=== PATIENT | female | born 1985 | race Caucasian/White ===

== ENCOUNTER 2016-10-14 19:29 | Emergency (ER) | payer OTHER ==
[2016-10-14 21:36] VITALS: BP 118/67
--- NOTE | 2016-10-14 22:09 | UC ---
FLU HPI - HPI Summary HPI Summary: YOUNGEST SON HAS DIAGNOSIS OF INFLUENZA (WITH POSITIVE SWAB) YESTERDAY. TODAY SHE IS DEVELOPING COUGH CONGESTION, ACHES. - History of Current Complaint Chief Complaint: UCRespiratory Stated Complaint: COUGH Time Seen by Provider: 10/14/16 21:09 Hx Obtained From: Patient Hx Last Menstrual Period: 10/14/16 Onset/Duration: Sudden Onset, Lasting Hours, Still Present Severity Currently: Mild Severity Initially: Mild Associated Signs & Symptoms: Positive: Myalgia, Cough, Nasal Congestion - Allergy/Home Medications Allergies/Adverse Reactions: Allergies Allergy/AdvReac Type Severity Reaction Status Date / Time No Known Allergies Allergy Verified 10/14/16 21:36 PMH/Surg Hx/FS Hx/Imm Hx Previously Healthy: Yes Endocrine History Of: Denies: Diabetes, Thyroid Disease Cardiovascular History Of: Reports: Cardiac Disorders - mitral valve prolapse Denies: Hypertension Respiratory History Of: Denies: COPD, Asthma GI/ History Of: Denies: Ulcer - Surgical History Surgical History: Yes Surgery Procedure, Year, and Place: [id number] - Family History Known Family History: Positive: None Family History: none - Social History Occupation: Employed Full-time Lives: With Family Alcohol Use: Occasionally Substance Use Type: None Smoking Status (MU): Former Smoker Length of Time of Smoking/Using Tobacco: 3 Have You Smoked in the Last Year: No When Did the Patient Quit Smoking/Using Tobacco: 2003 - Immunization History Most Recent Influenza Vaccination: denies Most Recent Pneumonia Vaccination: denies Review of Systems Constitutional: Negative Skin: Negative Eyes: Negative ENT: Nasal Discharge Respiratory: Cough Cardiovascular: Negative Gastrointestinal: Negative Genitourinary: Negative Motor: Negative Neurovascular: Negative Musculoskeletal: Myalgia Neurological: Negative Psychological: Negative All Other Systems Reviewed And Are Negative: Yes Physical Exam Triage Information Reviewed: Yes Appearance: Well-Appearing, No Pain Distress, Well-Nourished Vital Signs: Initial Vital Signs Temp 97.8 F 10/14/16 21:30 Pulse 84 10/14/16 21:30 Resp 16 10/14/16 21:30 BP 118/67 10/14/16 21:30 Pulse Ox 100 10/14/16 21:30 Vital Signs Reviewed: Yes Eye Exam: Normal ENT Exam: Normal ENT: Positive: Normal ENT inspection, Hearing grossly normal, Pharynx normal, TMs normal Dental Exam: Normal Neck exam: Normal Neck: Positive: Supple, Nontender, No Lymphadenopathy. Negative: Nuchal Rigidity Respiratory Exam: Normal Respiratory: Positive: Chest non-tender, Lungs clear, Normal breath sounds, No respiratory distress Cardiovascular Exam: Normal Cardiovascular: Positive: RRR, No Murmur, Pulses Normal Abdominal Exam: Normal Abdomen Description: Positive: Nontender, No Organomegaly Musculoskeletal Exam: Normal Neurological Exam: Normal Psychological Exam: Normal Psychological: Positive: Normal Response To Family Skin Exam: Normal Flu Course/Dx - Differential Dx/Diagnosis Differential Diagnosis/HQI/PQRI: Influenza, RSV, Upper Respiratory Infection Provider Diagnoses: INFLUENZA Discharge - Discharge Plan Condition: Stable Disposition: HOME Prescriptions: Oseltamivir CAP* [Tamiflu CAP*] 75 mg PO BID #10 cap Patient Education Materials: Influenza (ED) Referrals: Yin Rowley [Primary Care Provider] -
== END 2016-10-14 22:10 | disposition home or self-care (01) ==
LOC: UCEAST 19:29
DX: J11.1 Influenza due to unidentified influenza virus with other respiratory manifestations (principal); Z87.891 Personal history of nicotine dependence
CPT/HCPCS: 99212; G0463

== ENCOUNTER 2016-10-21 12:59 | Emergency (ER) | payer OTHER ==
[2016-10-21 15:24] VITALS: BP 142/82
--- NOTE | 2016-10-21 15:38 | UC ---
Respiratory Complaint HPI - HPI Summary HPI Summary: 31 yo female ill for about a week Initially dxed with flu now worse cough worse severe sinus pressure and pain low grade temp - History of Current Complaint Chief Complaint: UCRespiratory Stated Complaint: COUGH Time Seen by Provider: 10/21/16 15:33 Hx Obtained From: Patient Hx Last Menstrual Period: 09/28/16 Onset/Duration: Gradual Onset, Lasting Days Timing: Constant Severity Initially: Mild Severity Currently: Moderate Pain Intensity: 4 Pain Scale Used: 0-10 Numeric Character: Cough: Productive Aggravating Factors: Deep Breaths, Recumbent Position Alleviating Factors: Nothing Associated Signs And Symptoms: Positive: Fever, Chills, Nasal Congestion, Hoarseness, Sinus Discomfort - Allergies/Home Medications Allergies/Adverse Reactions: Allergies Allergy/AdvReac Type Severity Reaction Status Date / Time No Known Allergies Allergy Verified 10/21/16 15:17 Home Medications: Home Medications Ibuprofen TAB* [Advil TAB*] 200 mg PO Q6H PRN 10/21/16 [History Confirmed ] PMH/Surg Hx/FS Hx/Imm Hx Previously Healthy: Yes Endocrine History Of: Denies: Diabetes, Thyroid Disease Cardiovascular History Of: Reports: Cardiac Disorders - mitral valve prolapse Denies: Hypertension Respiratory History Of: Denies: COPD, Asthma GI/ History Of: Denies: Ulcer - Surgical History Surgical History: Yes Surgery Procedure, Year, and Place: [id number] - Family History Known Family History: Positive: Hypertension Negative: Cardiac Disease, Diabetes Family History: none - Social History Alcohol Use: Occasionally Substance Use Type: None Smoking Status (MU): Former Smoker Length of Time of Smoking/Using Tobacco: 3 Have You Smoked in the Last Year: No When Did the Patient Quit Smoking/Using Tobacco: 2003 - Immunization History Most Recent Influenza Vaccination: denies Most Recent Pneumonia Vaccination: denies Review of Systems Constitutional: Fever, Chills Skin: Negative Eyes: Negative ENT: Dental Pain, Nasal Discharge Respiratory: Cough Cardiovascular: Negative Gastrointestinal: Negative Genitourinary: Negative Motor: Negative Neurovascular: Negative Musculoskeletal: Negative Neurological: Headache - facial headache and pain Psychological: Negative All Other Systems Reviewed And Are Negative: Yes Physical Exam Triage Information Reviewed: Yes Appearance: Well-Appearing, No Pain Distress, Well-Nourished Vital Signs: Initial Vital Signs Temp 97.9 F 10/21/16 15:18 Pulse 72 10/21/16 15:18 Resp 16 10/21/16 15:18 BP 142/82 10/21/16 15:18 Pulse Ox 99 10/21/16 15:18 Vital Signs Reviewed: Yes Eyes: Positive: Conjunctiva Clear ENT: Positive: Hearing grossly normal, Nasal congestion, Nasal drainage, TMs normal, Muffled/hoarse voice Neck: Positive: Supple, Nontender Respiratory: Positive: Lungs clear, Normal breath sounds, No respiratory distress, No accessory muscle use Cardiovascular: Positive: RRR, No Murmur Musculoskeletal: Positive: ROM Intact, No Edema Neurological: Positive: Alert Psychological Exam: Normal Skin Exam: Normal UC Diagnostic Evaluation - Laboratory O2 Sat by Pulse Oximetry: 99 - normal/not hypoxic Respiratory Course/Dx - Differential Dx/Diagnosis Provider Diagnoses: acute sinusitis Discharge - Discharge Plan Condition: Stable Disposition: HOME Prescriptions: Cefuroxime Axetil [Ceftin 250 MG] 250 mg PO BID #20 tab Fluconazole 150 MG (NF) [Diflucan 150 mg (NF)] 150 mg PO ONCE #1 tab Patient Education Materials: Sinusitis (ED) Referrals: Ras Whitehead NP [Primary Care Provider] - 5 Days (if not better) Additional Instructions: saline nasal spray twice daily warm facial compresses
== END 2016-10-21 15:50 | disposition home or self-care (01) ==
LOC: UCCORT 12:59
DX: J01.90 Acute sinusitis, unspecified (principal); I34.1 Nonrheumatic mitral (valve) prolapse; Z87.891 Personal history of nicotine dependence
CPT/HCPCS: 99212; G0463

== ENCOUNTER 2017-05-23 08:06 | Emergency (ER) | payer OTHER ==
[2017-05-23] MEDS ORDERED: Ondansetron INJ* 2 MG/ML VIAL IV ONE (08:30)
[2017-05-23] MEDS ORDERED: Pantoprazole IV* 40 MG IV ONE (08:30)
[2017-05-23] MEDS ORDERED: Al Hydrox/Mg Hydrox/Simet LIQ* 30 ML UDC PO ONE (08:33)
[2017-05-23] MEDS ORDERED: Lidocaine 2% VISCOUS* 15 ML UDC PO ONE (08:33)
--- NOTE | 2017-05-23 09:07 | RAD ---
Indication: Abdominal pain. Flat and upright views of the abdomen demonstrates no free air. Air distended colon is noted. IMPRESSION: No free air or intestinal obstruction is noted.
--- NOTE | 2017-05-23 09:08 | RAD ---
Indication: Chest pain. Single frontal view of the chest performed at 0852 hours was reviewed. No prior study is available for comparison. No mediastinal shift is noted. Heart is of normal size and configuration. Lung callejas appear clear. IMPRESSION: NO ACTIVE CARDIOPULMONARY DISEASE IS NOTED.
[2017-05-23 09:15] LABS: Hematocrit 40 % (35-47); Hemoglobin 13.6 g/dl (12.0-16.0); Mean Corpuscular HGB Conc 34 g/dl (31-36); Mean Corpuscular Hemoglobin 28 pg (27-31); Mean Corpuscular Volume 84 fL (80-97); Mean Platelet Volume 10 um3 (7.4-10.4); Red Cell Distribution Width 14 % (10.5-15); White Blood Count 13.3 10^3/ul (3.5-10.8)
[2017-05-23 09:26] LABS: Urine Bacteria 1+ (Absent); Urine Bilirubin Negative (Negative); Urine Glucose Negative (Negative); Urine Nitrite Negative (Negative)
[2017-05-23 09:38] LABS: ALT 18 U/L (7-52); AST 15 U/L (13-39); Albumin 4.3 g/dL (3.2-5.2); Alkaline Phosphatase 65 U/L (34-104); Anion Gap 8 mmol/L (2-11); BUN/Creatinine Ratio 14.7 (8-20); Blood Urea Nitrogen 10 mg/dL (6-24); C Reactive Protein 8.09 mg/L (< 5.00); CO2 Carbon Dioxide 23 mmol/L (22-32); Calcium 8.9 mg/dL (8.6-10.3); Chloride 105 mmol/L (101-111); EGFR African American 127.4 (>60); Globulin 2.9 g/dL (2-4); Glucose 114 mg/dL (70-100); Lipase 10 U/L (11.0-82.0); Magnesium 1.9 mg/dL (1.9-2.7); Potassium 3.7 mmol/L (3.5-5.0); Sodium 136 mmol/L (133-145); Total Protein 7.2 g/dL (6.4-8.9)
[2017-05-23] MEDS ORDERED: NS 0.9% 1000 ML* 1,000 ML IV ONE (09:59)
[2017-05-23 11:37] VITALS: BP 122/67
--- NOTE | 2017-05-23 18:55 | ED ---
Jeff Easton Thomas, scribed for Victor Hugo Levy MD on 05/23/17 at 0834 . Abdominal Pain/Female - HPI Summary HPI Summary: The pt is a 32 y/o F presenting to the ED c/o epigastric abd pain that was present when she woke up this AM. The pain is described as burning. The pain radiates to her throat and her back between her shoulder blades. The pain is rated 5/10. The pain is aggravated by nothing and is alleviated by vomiting. The patient has treated the pain with Famotidine and Tums [employer]. Pt additionally c /o nausea, vomiting, and a sour taste in her mouth. PSHx includes cholecystectomy. She is accompanied by a female family member. - History of Current Complaint Chief Complaint: EDChestPainROMI Stated Complaint: CHEST PAIN/DIZZY/NAUSEA Time Seen by Provider: 05/23/17 08:22 Hx Obtained From: Patient, Family/Journal Entry Audit Clerk - female family member is present Hx Last Menstrual Period: 09/28/16 Onset/Duration: Lasting Hours - pain was present when she woke up, Still Present Timing: Constant Pain Intensity: 5 Pain Scale Used: 0-10 Numeric Location: Epigastric Character: Burning Aggravating Factor(s): Nothing Alleviating Factor(s): Vomiting Associated Signs and Symptoms: Positive: Nausea, Vomiting, Other: - Sour taste in mouth. Allergies/Adverse Reactions: Allergies Allergy/AdvReac Type Severity Reaction Status Date / Time No Known Allergies Allergy Verified 05/23/17 08:18 PMH/Surg Hx/FS Hx/Imm Hx Previously Healthy: No Endocrine/Hematology History: Denies: Hx Diabetes, Hx Thyroid Disease Cardiovascular History: Denies: Hx Hypertension Respiratory History: Denies: Hx Asthma, Hx Chronic Obstructive Pulmonary Disease (COPD) GI History: Reports: Other GI Disorders - Hx gallbladder disease (with cholecystectomy) Denies: Hx Ulcer - Surgical History Surgery Procedure, Year, and Place: [id number] Infectious Disease History: No Infectious Disease History: Denies: Hx Clostridium Difficile, Hx Hepatitis, Hx Human Immunodeficiency Virus (HIV), Hx of Known/Suspected MRSA, Hx Shingles, Hx Tuberculosis, Hx Known/ Suspected VRE, Hx Known/Suspected VRSA, History Other Infectious Disease, Traveled Outside the [place] in Last 30 Days - Family History Known Family History: Positive: Hypertension Negative: Cardiac Disease, Diabetes Family History: none - Social History Alcohol Use: Occasionally Hx Substance Use: No Substance Use Type: Reports: None Hx Tobacco Use: Yes Smoking Status (MU): Former Smoker Length of Time of Smoking/Using Tobacco: 3 Have You Smoked in the Last Year: No Review of Systems Negative: Fever Positive: Abdominal Pain - epigastric, Vomiting, Nausea, Other - Sour taste in mouth All Other Systems Reviewed And Are Negative: Yes Physical Exam - Summary Physical Exam Summary: VITAL SIGNS: Reviewed. GENERAL: Patient is a well-developed and nourished female who is lying comfortable in the stretcher. Patient is not in any acute respiratory distress. HEAD AND FACE: No signs of trauma. No ecchymosis, hematomas or skull depressions. No sinus tenderness. EYES: PERRLA, EOMI x 2, No injected conjunctiva, no nystagmus. EARS: Hearing grossly intact. Ear canals and tympanic membranes are within normal limits. MOUTH: Oropharynx within normal limits. NECK: Supple, trachea is midline, no adenopathy, no JVD, no carotid bruit, no c- spine tenderness, neck with full ROM. CHEST: Symmetric, no tenderness at palpation LUNGS: Clear to auscultation bilaterally. No wheezing or crackles. CVS: Regular rate and rhythm, S1 and S2 present, no murmurs or gallops appreciated. ABDOMEN: She has some epigastric tenderness. Soft. No signs of distention. No rebound no guarding, and no masses palpated. Bowel sounds are normal. EXTREMITIES: FROM in all major joints, no edema, no cyanosis or clubbing. NEURO: Alert and oriented x 3. No acute neurological deficits. Speech is normal and follows commands. SKIN: Dry and warm Triage Information Reviewed: Yes Vital Signs On Initial Exam: Initial Vitals Temp Pulse Resp BP Pulse Ox 97.4 F 111 17 138/71 100 05/23/17 08:08 05/23/17 08:08 05/23/17 08:08 05/23/17 08:08 05/23/17 08:08 Vital Signs Reviewed: Yes - [place] Coma Scale Coma Scale Total: 15 Diagnostics - Vital Signs Vital Signs Temp Pulse Resp BP Pulse Ox 05/23/17 08:25 25 05/23/17 08:24 138/83 05/23/17 08:08 97.4 F 111 17 138/71 100 - Laboratory Result Diagrams: 05/23/17 09:00 05/23/17 09:00 Lab Statement: Any lab studies that have been ordered have been reviewed, and results considered in the medical decision making process. - Radiology CXR Xray Interpretation: No Acute Changes - No active cardiopulmonary disease is noted. ED physician has reviewed this report and agrees. Radiology Interpretation Completed By: Radiologist XR Abdo Xray Interpretation: No Acute Changes - No free air or intestinal obstruction is noted. ED physician has reviewed this report and agrees. Radiology Interpretation Completed By: Radiologist - EKG 09:11 Cardiac Rate: Tachycardia - 105 BPM EKG Rhythm: Sinus Tachycardia EKG Interpretation: TWI in II, AVF, V2-V5. Abdominal Pain Fem Course/Dx - Course Course Of Treatment: The pt is a 32 y/o F presenting to the ED c/o epigastric abd pain that was present when she woke up this AM. The pain is described as burning. The pain radiates to her throat and her back between her shoulder blades. The pain is rated 5/10. The pain is aggravated by nothing and is alleviated by vomiting. The patient has treated the pain with Famotidine and Tums [employer]. Pt additionally c/o nausea, vomiting, and a sour taste in her mouth. PSHx includes cholecystectomy. She is accompanied by a female family member. Test results are without significant abnormalities except WBC 13. In the ED course, the patient was given IV fluids, Protonix, and GI cocktail. The symptoms are resolved. At this point, the patient is asymptomatic and is feeling better. Therefore, she will be discharged home with follow up by primary care. The patient is hemodynamically stable and alert and oriented x 3. - Diagnoses Provider Diagnoses: GERD (gastroesophageal reflux disease), Epigastric pain, Gastritis Discharge - Discharge Plan Condition: Stable Disposition: HOME Prescriptions: Pantoprazole TAB (NF) [Protonix TAB (NF)] 20 mg PO DAILY #14 tab Patient Education Materials: Epigastric Pain (ED), Gastroesophageal Reflux Disease (ED), Gastritis (ED) Referrals: Ras Whitehead NP [Primary Care Provider] - 3 Days Additional Instructions: Follow up with your primary care provider in 2-3 days. Return to the emergency department for any new or worsening symptoms. The documentation as recorded by the Jeff maier Thomas accurately reflects the service I personally performed and the decisions made by me, Victor Hugo Levy MD.
== END 2017-05-23 11:48 | disposition home or self-care (01) ==
LOC: ED 08:06
DX: K21.9 Gastro-esophageal reflux disease without esophagitis (principal); R10.13 Epigastric pain; K29.70 Gastritis, unspecified, without bleeding; R11.2 Nausea with vomiting, unspecified
CPT/HCPCS: 36415; 71010; 74020; 80053; 81003; 81015; 83690; 83735; 83880; 84484; 84702; 85025; 86140; 87086; 93005; 96365; 96366; 99283; A9270-GY; J2405

== ENCOUNTER 2017-10-09 13:50 | Emergency (ER) | payer OTHER ==
[2017-10-09 14:41] VITALS: BP 137/72
--- NOTE | 2017-10-09 14:47 | UC ---
Throat Pain/Nasal Son HPI - HPI Summary HPI Summary: 32 y/o female presents to the urgent care c/o sore throat, nasal congestion w/ dry cough for the past 3 days. However her 2 children were Dx w/ strep yesterday by [employer] Set Up Operator. This morning she developed fever of 101F w/ sinus pain and pressure. She took Ibuprofen 600mg PO to alleviate symptoms around 1300pm. Pt denies SOB, chest pain, abdominal pain, N/V/D. - History of Current Complaint Chief Complaint: UCRespiratory Stated Complaint: FEVER/ST Time Seen by Provider: 10/09/17 14:45 Hx Obtained From: Patient Hx Last Menstrual Period: 3 weeks ago ?: No Onset/Duration: Gradual Onset, Lasting Days - 3 days, Still Present, Worse Since - this morning Severity: Mild Pain Intensity: 4 Pain Scale Used: 0-10 Numeric Cough: Nonproductive Associated Signs & Symptoms: Positive: Dysphagia, Sinus Discomfort, Nasal Discharge, Fever - Epiglottits Risk Factors Epiglottis Risk Factors: Negative - Allergies/Home Medications Allergies/Adverse Reactions: Allergies Allergy/AdvReac Type Severity Reaction Status Date / Time No Known Allergies Allergy Verified 10/09/17 14:35 Home Medications: Home Medications Topiramate TAB(*) [Topamax 25 MG tab] 50 mg DAILY 10/09/17 [History Confirmed ] PMH/Surg Hx/FS Hx/Imm Hx Previously Healthy: Yes - Pt denies PMHX - Surgical History Surgical History: Yes Surgery Procedure, Year, and Place: [id number]. Gallbladder - Family History Known Family History: Positive: Hypertension Negative: Cardiac Disease, Diabetes Family History: Dyslipidemia - Social History Occupation: Employed Full-time Lives: With Family Alcohol Use: None Substance Use Type: None Smoking Status (MU): Former Smoker Length of Time of Smoking/Using Tobacco: 3 Have You Smoked in the Last Year: No When Did the Patient Quit Smoking/Using Tobacco: 2003 - Immunization History Most Recent Influenza Vaccination: denies Most Recent Pneumonia Vaccination: denies Review of Systems Constitutional: Fever, Chills Skin: Negative Eyes: Negative ENT: Sore Throat, Nasal Discharge Respiratory: Cough - dry Cardiovascular: Negative Gastrointestinal: Negative Genitourinary: Negative Motor: Negative Neurovascular: Negative Musculoskeletal: Negative Neurological: Negative Psychological: Negative Is Patient Immunocompromised?: No All Other Systems Reviewed And Are Negative: Yes Physical Exam - Summary Physical Exam Summary: VITAL SIGNS: Reviewed. GENERAL: Patient is a well developed and nourished female who is sitting comfortable in the examining table. Patient is not in any acute respiratory distress. HEAD AND FACE: No signs of trauma. No ecchymosis, hematomas or skull depressions. No sinus tenderness. EYES: PERRLA, EOMI x 2, No injected conjunctiva, no nystagmus. No photophobia. EARS: Hearing grossly intact. Ear canals and tympanic membranes are within normal limits. MOUTH: Positive pharynx with mild erythema, no exudates, mild palatal petechiae. mild B/L tonsillar enlargement with no exudate. Uvula in midline. NECK: Supple, trachea is midline, Positive anterior cervical lymphadenopathy, no JVD, no carotid bruit, no c-spine tenderness, neck with full ROM. No meningeal signs, no Kernig's or brudzinskis signs. CHEST: Symmetric, no tenderness at palpation LUNGS: Clear to auscultation bilaterally. No wheezing or crackles. CVS: Regular rate and rhythm, S1 and S2 present, no murmurs or gallops appreciated. ABDOMEN: Soft, non-tender. No signs of distention. No rebound no guarding, and no masses palpated. Bowel sounds are normal. EXTREMITIES: FROM in all major joints, no edema, no cyanosis or clubbing. NEURO: Alert and oriented x 3. No acute neurological deficits. Speech is normal and follows commands. SKIN: Dry and warm Triage Information Reviewed: Yes Vital Signs: Initial Vital Signs Temp 97.7 F 10/09/17 14:34 Pulse 88 10/09/17 14:34 Resp 14 10/09/17 14:34 BP 137/72 10/09/17 14:34 Pulse Ox 99 10/09/17 14:34 Throat Pain/Nasal Course/Dx - Course Course Of Treatment: 32 y/o female presents to the urgent care c/o sore throat, nasal congestion w/ dry cough for the past 3 days. However her 2 children were Dx w/ strep yesterday by [employer] Set Up Operator. This morning she developed fever of 101F w/ sinus pain and pressure. She took Ibuprofen 600mg PO to alleviate symptoms around 1300pm. Pt denies SOB, chest pain, abdominal pain, N/V/D.Hx obtained. Pt w/ pharyngitis on examination. Rapid strep ordered, result: negative. Viral pharyngitis.Pt advised to continue w/ ibuprofen PO to alleviates symptoms of pain and swelling. Advised on hand washing to avoid spreading. Pt advised to rest, eat well and avoid strenuous exercise. If symptoms do not improve or worsen advised to return to the urgent care or f/u with her PCP for further evaluation and treatment. Pt understood and agreed - Differential Dx/Diagnosis Differential Diagnosis/HQI/PQRI: Influenza, Laryngitis, Mononucleosis, Pharyngitis, Sinusitis, Tonsillitis, URI Provider Diagnoses: 1- Acute pharyngitis Discharge - Discharge Plan Condition: Stable Disposition: HOME Patient Education Materials: Pharyngitis (ED) Referrals: Ras Whitehead NP [Primary Care Provider] - If Needed Additional Instructions: 1-Please continue taking ibuprofen PO q6-8hrs prn as instructed after meals to alleviate pain and swelling. Increase fluid intake, eat well, rest and avoid strenuous exercise 2-If symptoms do not improve or worsen please return to the urgent care or f/u with your PCP for further evaluation and treatment.
== END 2017-10-09 15:13 | disposition home or self-care (01) ==
LOC: UCCORT 13:50
DX: J02.9 Acute pharyngitis, unspecified (principal); Z87.891 Personal history of nicotine dependence
CPT/HCPCS: 87651; 99211; G0463

== ENCOUNTER 2018-01-25 16:22 | Emergency (ER) | payer OTHER ==
--- NOTE | 2018-01-25 16:53 | UC ---
Complaint Female HPI - HPI Summary HPI Summary: uti since last pm. took azo. - History Of Current Complaint Stated Complaint: URINARY Time Seen by Provider: 01/25/18 16:45 Hx Obtained From: Patient Hx Last Menstrual Period: 3 weeks ago ?: No Onset/Duration: Gradual Onset Timing: Constant Aggravating Factor(s): Nothing Alleviating Factor(s): Nothing Associated Signs And Symptoms: Negative: Fever, Back Pain, Vaginal Bleeding/ Discharge - Allergies/Home Medications Allergies/Adverse Reactions: Allergies Allergy/AdvReac Type Severity Reaction Status Date / Time No Known Allergies Allergy Verified 01/25/18 16:58 PMH/Surg Hx/FS Hx/Imm Hx - Additional Past Medical History Additional PMH: uti - Surgical History Surgical History: Yes Surgery Procedure, Year, and Place: [id number]. Gallbladder - Family History Known Family History: Positive: None, Hypertension Negative: Cardiac Disease, Diabetes Family History: Dyslipidemia - Social History Occupation: Employed Full-time Alcohol Use: None Substance Use Type: None Smoking Status (MU): Former Smoker Length of Time of Smoking/Using Tobacco: 3 Have You Smoked in the Last Year: No When Did the Patient Quit Smoking/Using Tobacco: 2003 - Immunization History Most Recent Influenza Vaccination: denies Most Recent Pneumonia Vaccination: denies Vaccination Up to Date: Yes Review of Systems Constitutional: Negative Skin: Negative Eyes: Negative ENT: Negative Respiratory: Negative Cardiovascular: Negative Gastrointestinal: Negative Genitourinary: Dysuria, Frequency, Urgency Motor: Negative Neurovascular: Negative Musculoskeletal: Negative Neurological: Negative Psychological: Negative Is Patient Immunocompromised?: No All Other Systems Reviewed And Are Negative: Yes Physical Exam Triage Information Reviewed: Yes Appearance: Well-Appearing Eyes: Positive: Conjunctiva Clear ENT: Positive: Normal ENT inspection Neck: Positive: Supple, Nontender, No Lymphadenopathy Respiratory: Positive: Lungs clear, Normal breath sounds Cardiovascular: Positive: RRR, No Murmur Abdomen Description: Positive: Nontender, No Organomegaly, Soft. Negative: CVA Tenderness (R), CVA Tenderness (L), Distended, Guarding Bowel Sounds: Positive: Present Musculoskeletal: Positive: ROM Intact Neurological: Positive: Alert Psychological: Positive: Age Appropriate Behavior Skin Exam: Normal Diagnostics - Laboratory Diagnostic Studies Completed/Ordered: urine culture pending. pt took azo door captain thus no u/a. Complaint Female Dx - Course Course Of Treatment: hx suggests uti, will tx presumptively - Differential Dx/Diagnosis Provider Diagnoses: dysuria Discharge - Sign-Out/Discharge Documenting (check all that apply): Discharge/Admit/Transfer - Discharge Plan Condition: Stable Disposition: HOME Prescriptions: Nitrofurantoin Monohyd/M-Cryst [Macrobid 100 mg Capsule] 100 mg PO BID #10 cap Patient Education Materials: Urinary Tract Infection in Women (DC) Referrals: Ras Whitehead NP [Primary Care Provider] - 7 Days - Billing Disposition and Condition Condition: STABLE Disposition: Home
[2018-01-25 16:57] VITALS: BP 121/57
== END 2018-01-25 17:10 | disposition home or self-care (01) ==
LOC: UCCORT 16:22
DX: R30.0 Dysuria (principal); Z87.891 Personal history of nicotine dependence
CPT/HCPCS: 87086; 99212; G0463

== ENCOUNTER 2019-10-13 14:36 | Emergency (ER) | payer OTHER ==
[2019-10-13 16:14] VITALS: BP 121/58
--- NOTE | 2019-10-13 16:36 | UC ---
Respiratory Complaint HPI - HPI Summary HPI Summary: Per refinery technician: "Cough, headache, fever today-101.9. Symptoms started today. Pt finished a cruise over 2 weeks ago. " -h/o gastric byopass. had called her dr to find out what she can take for fever. -took APAP ~ 3 hrs ago and has recued fever from 101. -here w/ her who has had sx started 10/10. -her tested positive for flu A today. She has been taking care of him. her sx started today in [facility] exact same fashion that his did. + ASHLEY and fever and now starting / cough -denies shortness of breath or difficulty breathing. [facility]. these sx started 2 d ago. - History of Current Complaint Chief Complaint: UCGeneralIllness Stated Complaint: FEVER,COUGH Time Seen by Provider: 10/13/19 16:31 Hx Last Menstrual Period: 09/29/19 Pain Intensity: 5 - Allergies/Home Medications Allergies/Adverse Reactions: Allergies Allergy/AdvReac Type Severity Reaction Status Date / Time No Known Allergies Allergy Verified 10/13/19 16:15 Home Medications: Home Medications Acetaminophen [Mapap] 1,000 mg PO Q4HR PRN 10/13/19 [History Confirmed 10/13/19] Oseltamivir CAP* [Tamiflu CAP*] 75 mg PO BID #10 cap 10/13/19 [Rx] Topiramate [Topamax] 25 mg PO DAILY 10/13/19 [History Confirmed 10/13/19] PMH/Surg Hx/FS Hx/Imm Hx Previously Healthy: Yes - Surgical History Surgical History: Yes Surgery Procedure, Year, and Place: [id number]. Gallbladder. gastric bypass - Family History Known Family History: Positive: None, Hypertension, Respiratory Disease - child w/ asthma Negative: Cardiac Disease, Diabetes Family History: Dyslipidemia - Social History Alcohol Use: None Substance Use Type: None Smoking Status (MU): Former Smoker Length of Time of Smoking/Using Tobacco: 3 Have You Smoked in the Last Year: No When Did the Patient Quit Smoking/Using Tobacco: 2003 - Immunization History Most Recent Influenza Vaccination: denies Most Recent Pneumonia Vaccination: denies Vaccination Up to Date: Yes Review of Systems All Other Systems Reviewed And Are Negative: Yes Constitutional: Positive: Fever Skin: Positive: Negative. Negative: Rash Eyes: Positive: Negative Respiratory: Positive: Cough. Negative: Shortness Of Breath Cardiovascular: Positive: Negative. Negative: Palpitations, Chest Pain Gastrointestinal: Positive: Negative. Negative: Abdominal Pain, Vomiting, Diarrhea, Nausea Genitourinary: Positive: Negative Motor: Positive: Negative Neurovascular: Positive: Negative Musculoskeletal: Positive: Negative Neurological/Mental Status: Positive: Headache Psychological: Positive: Negative Physical Exam Triage Information Reviewed: Yes Appearance: Well-Appearing, No Pain Distress, Well-Nourished - very pleasant. cough only x 1 during my time in exam room. Vital Signs: Initial Vital Signs Temp 98.3 F 10/13/19 16:08 Pulse 101 10/13/19 16:08 Resp 14 10/13/19 16:08 BP 121/58 10/13/19 16:08 Pulse Ox 100 10/13/19 16:08 Vital Signs Reviewed: Yes Eye Exam: Normal ENT: Positive: Pharynx normal, TMs normal, Uvula midline. Negative: Nasal congestion, Nasal drainage, TM bulging, TM dull, TM red, Sinus tenderness Neck exam: Normal Neck: Positive: Supple, Nontender, No Lymphadenopathy Respiratory Exam: Normal Respiratory: Positive: Chest non-tender, Lungs clear, Normal breath sounds, No respiratory distress, No accessory muscle use. Negative: Crackles, Rhonchi, Stridor, Wheezing Cardiovascular Exam: Normal Cardiovascular: Positive: RRR, No Murmur Abdominal Exam: Normal Abdomen Description: Positive: Nontender, Soft Musculoskeletal Exam: Normal Neurological Exam: Normal Psychological Exam: Normal Skin Exam: Normal Skin: Negative: Rashes Respiratory Course/Dx - Course Course Of Treatment: FLu test neg. strep neg -sx started today - same as husbands that tarted 2 days ago. he tests positive for flu. she has been caringf or him. no fever. O2 100% RA. no resp distress clincially and denies SOB/pain or difficulty breathing -clinically treating as flu bc positive exposure, same sx. -she is very agreeable w/ this evaluation -call pcp aline w/ any resp distress. reliable. v/u and agreeable w/ plan. -call kids' PCP for tamiflu guidance -tamiflu bid x 5 days. - Differential Dx/Diagnosis Differential Diagnosis/HQI/PQRI: Asthma, Bronchitis, Influenza Provider Diagnosis: Cough Discharge ED - Sign-Out/Discharge Documenting (check all that apply): Patient Departure All imaging exams completed and their final reports reviewed: No Studies - Discharge Plan Condition: Stable Disposition: HOME Prescriptions: Oseltamivir CAP* [Tamiflu CAP*] 75 mg PO BID #10 cap Patient Education Materials: Influenza (ED) Referrals: Ras Whitehead NP [Primary Care Provider] - 3 Days Additional Instructions: Your tested positive for flu, whom which you had close contact with. Your symptoms started in a very similar way which leads me to believe that you have the flu and likely have a false negative. Your temperature has reduced to normal. Make sure to call your children's PCP for recommendations regarding tamiflu. Increase fluids and rest. You are contagious. Stay at home until your symptoms have resolved and your are fever free without a fever sql analyst for 24 hours. Please call your PCP immediately if you develop and difficulty breathing or shortness of breath. Call your PCP for follow up guidance. - Billing Disposition and Condition Condition: STABLE Disposition: Home
[2019-10-13 17:02] LABS: Influenza A Molecular Negative (Negative); Influenza B Molecular Negative (Negative)
--- OUTSIDE RECORDS SUMMARY | 2019-10-13 17:39 | XMS REPORT | Continuity of Care Document ---
:1985 External Reference #:[id number] Author Name Rsa Whitehead, N.P. Address [address] [place] [id number] Care Team Providers Name Role Phone [facility] Care Team Information Pbx Teacher [phone] Elizabeth Mclain Care Team Information Pbx Teacher [phone] [facility] Care Team Information Pbx Teacher [phone] Problems Active Problems Provider Date Headache Yin Burns PA Onset: 12/25/2012 Generalized anxiety disorder Yin Burns PA Onset: 03/22/2011 Palpitations Yin Burns PA Onset: 03/22/2011 Cholecystectomy Ras Whitehead, N.P. Onset: 01/17/2017 Cataract Ras Whitehead, N.P. Onset: 08/29/2017 Note: R only Social History Type Date Description Comments Sex Unknown ETOH Use Occasionally consumes alcohol Tobacco Use Start: Unknown End: Unknown Patient is a former smoker Allergies, Adverse Reactions, Alerts Description No Known Drug Allergies Medications Active Medications SIG Qnty Indications Ordering Date Provider Cefdinir 1 by mouth 20caps [place], 08/28/2019 300mg Capsules twice a day x Mashelle, N.P. 10 days Fluconazole 1 by mouth 2tabs [place], 08/28/2019 150mg Tablets every day x 1 Mashelle, N.P. and repeat in 5 days x 1 Cyclobenzaprine HCL take one tablet 15tabs [place], 05/18/2019 10mg by mouth three Mashelle, N.P. Tablets times a day as needed muscle spasm Hydrocodone 1 by mouth 8tabs [place], 05/18/2019 Bitartrate/Acetaminophen every 6h as Mashelle, N.P. needed pain 5-325mg Tablets Topiramate Take 1 Tablet 30tabs [place], 04/08/2019 25mg Tablets By Mouth Every Mashelle, N.P. Day Multi Vitamin [place], 05/08/2018 Tablets Mashelle, N.P. History Medications Oseltamivir Phosphate 1 by mouth once 7caps Ras Whitehead, 08/21/2019 - a day x 7 days N.P. 08/28/2019 75mg Capsules Immunizations CPT Code Status Date Vaccine Lot # [id number] Given 10/22/2006 HPV Vaccine (Gardasil) 3 Dose Schedule 65811 Given 08/16/2006 HPV Vaccine (Gardasil) 3 Dose Schedule 31658 Given 03/21/2002 MMR Virus Immunization 03629 Given 03/19/2002 Immunization Td 7 Yrs Or Older 20072 Refused 05/18/2019 Influenza Vac, Quadrivalent, Split, 0.5mL Dosage, Im Use 26981 Refused 05/18/2018 Influenza Vac, Quadrivalent, Split, 0.5mL Dosage, Im Use Vital Signs Date Vital Result Comment 08/28/2019 9:39am Body Temperature 98.2 F Weight 142.00 lb Heart Rate 74 /min BP Systolic 108 mmHg BP Diastolic 76 mmHg O2 % BldC Oximetry 99 % 05/18/2019 2:23pm Body Temperature 98.6 F Weight 139.25 lb Heart Rate 76 /min BP Systolic 118 mmHg BP Diastolic 78 mmHg O2 % BldC Oximetry 99 % Results Test Acquired Date Facility Test Result H/L Range Note Comprehensive Met 04/08/2019 [facility] Sodium 138 mmol/L 135-146 1, 2 [facility] Potassium 6.1 mmol/L Critical high 3.5-5.2 3 Chloride# 104 mmol/L 97-110 4 Carbon Dioxide 28 mmol/L 24-34 Calcium 9.5 mg/dL 8.5-10.5 5 Glucose 78 mg/dL 70-105 BUN 9 mg/dL 6-26 Creatinine 0.7 mg/dL 0.5-1.4 Total Protein 6.4 g/dL 6.0-8.0 Albumin 4.3 g/dL 3.6-4.9 Globulin 2.1 g/dL 2.0-3.5 A/G Ratio 2.0 Ratio 1.0-2.2 Total Bilirubin 0.5 mg/dL 0.1-1.3 Alkaline Phosphatase 67 U/L 24-140 Alt 16 U/L 3-42 Ast 17 U/L 8-42 Anion Gap 6 mmol/L 5-15 6 Female Egfr 104 >60 7 Male Egfr 119 >60 8 1 This sample is drawn by:FELICE 2 Updated reference range on new analyzer 3 Critical Result S_K:6.1 Verified by repeat analysis and Called to: RAS WHITEHEAD at: 04/08/2019 19:05:43 by:PARKER Buckley 4 Updated reference range on new analyzer 5 Updated reference range 11-26-2018 6 Updated Reference Range 7 Concerning GFR Guidelines for Americans: Normal function or mild renal disease, if clinically at risk: >/= 60 mL/min Moderately decreased: 30-59 Severely decreased: 15-29 Renal failure: <15 There is reduced accuracy above 60ml/min/1.73 m squared, but the numeric value may be clinically useful in the near 60 range 8 Concerning GFR Guidelines: Normal function or mild renal disease, if clinically at risk: >/= 60 mL/min Moderately decreased: 30-59 Severely decreased: 15-29 Renal failure: <15 There is reduced accuracy above 60ml/min/1.73 m squared, but the numeric value may be clinically useful in the near 60 range Glomerular Filtration Rate (GFR) is estimated based on the CKD-EPI equation, which assumes a steady state for creatinine as recommended by the National Kidney Disease Education Program in conjunction with the National Institutes of Health and the National Kidney Foundation. Clinical conditions in which it may be necessary to measure GFR by using clearance methods include extremes of age and body size, severe malnutrition or obesity, diseases of skeletal muscle, paraplegia or quadriplegia, vegetarian diet, rapidly changing kidney function, and calculation of the dose of potentially toxic drugs that are excreted by the kidneys. Procedures Description No Information Available Medical Devices Description No Information Available Encounters Type Date Location Provider Dx Diagnosis Office Visit 05/18/2019 Ras Haas, M54.31 Sciatica, RIGHT side 2:30p N.P. Z28.21 Immunization not carried out because of patient refusal Office Visit 04/08/2019 8:30a Ras Haas, R79.9 Abnormal finding of N.P. blood chemistry, unspecified Z13.31 Encounter for screening for depression Z28.21 Immunization not carried out because of patient refusal R51 Headache F41.1 Generalized anxiety disorder Assessments Date Code Description Provider 08/28/2019 J01.00 Acute maxillary sinusitis, unspecified Ras Whitehead, N.P. 05/18/2019 M54.31 Sciatica, RIGHT side Ras Whitehead N.P. 05/18/2019 Z28.21 Immunization not carried out because of Ras Whitehead, N.P. patient refusal 04/08/2019 R79.9 Abnormal finding of blood chemistry, Ras Whitehead, N.P. unspecified 04/08/2019 Z13.31 Encounter for screening for depression Ras Whitehead N.P. 04/08/2019 Z28.21 Immunization not carried out because of Ras Whitehead, N.P. patient refusal 04/08/2019 R51 Headache Ras Whitehead, N.P. 04/08/2019 F41.1 Generalized anxiety disorder Ras Whitehead, N.P. 04/08/2019 R79.9 Abnormal finding of blood chemistry, [facility] unspecified Plan of Treatment 08/28/2019 - Ras Whitehead N.P.J01.00 Acute maxillary sinusitis, unspecifiedComments:cefdinir as rx'd OTC mucinex,sudafed, increase fluids, rest , ibuprofenAllNew Medication:Cefdinir 300 mg - 1 by mouth twice a day x 10 daysFluconazole 150 mg - 1 by mouth every day x 1 and repeat in 5 days x 1 Functional Status Description No Information Available Mental Status Description No Information Available Referrals Description No Information Available
== END 2019-10-13 17:33 | disposition home or self-care (01) ==
LOC: UCCORT 14:36
DX: R05 Cough (principal); R51 Headache; R50.9 Fever, unspecified; Z87.891 Personal history of nicotine dependence
CPT/HCPCS: 87651; 99212; G0463